=== PATIENT | female | born 1970 | race Caucasian/White ===

== ENCOUNTER 2017-09-08 13:43 | Observation (INO) | payer SELFPAY ==
--- NOTE | 2017-09-08 16:20 | C.PDOC ---
History Of Present Illness 47 y/o female presents to ED with c/o chest pain on and off since few days. Patient describes left sided heaviness posteriorly. Denies headache, shortness of breath, nausea, vomiting, or other associated symptoms. Time Seen by Provider: 09/08/17 16:11 Chief Complaint (Nursing): Chest Pain History Per: Patient History/Exam Limitations: no limitations Onset/Duration Of Symptoms: Days Current Symptoms Are (Timing): Still Present Associated Symptoms: denies: Nausea, Dyspnea, Diaphoresis Exacerbating Factors: None Recent travel outside of the [place]: No Past Medical History Reviewed: Historical Data, Nursing Documentation, Vital Signs Vital Signs: Last Vital Signs Temp 98.8 F 09/08/17 18:56 Pulse 75 09/08/17 18:56 Resp 16 09/08/17 18:56 BP 131/75 09/08/17 18:56 Pulse Ox 100 09/08/17 19:57 - Medical History PMH: No Chronic Diseases Family History: States: Unknown Family Hx - Social History Hx Alcohol Use: No Hx Substance Use: No - Immunization History Hx Tetanus Toxoid Vaccination: No Hx Influenza Vaccination: Yes Hx Pneumococcal Vaccination: No Review Of Systems Except As Marked, All Systems Reviewed And Found Negative. Constitutional: Negative for: Fever, Chills Cardiovascular: Positive for: Chest Pain. Negative for: Palpitations Respiratory: Negative for: Cough, Shortness of Breath, Wheezing Gastrointestinal: Negative for: Nausea, Vomiting, Abdominal Pain Skin: Negative for: Rash Neurological: Negative for: Dizziness Physical Exam - Physical Exam Appears: Non-toxic, No Acute Distress Skin: Normal Color, Warm, Dry, No Diaphoretic Head: Atraumatic, Normacephalic Oral Mucosa: Moist Chest: Symmetrical Cardiovascular: Rhythm Regular Respiratory: Normal Breath Sounds, No Rales, No Rhonchi, No Wheezing Gastrointestinal/Abdominal: Normal Exam, Soft, No Tenderness Back: Normal Inspection Extremity: Normal ROM, Capillary Refill (< 2 sec.) Neurological/Psych: Oriented x3, Normal Speech, Normal Cognition ED Course And Treatment - Laboratory Results Result Diagrams: 09/08/17 16:55 09/08/17 16:55 ECG: Interpreted By Me ECG Rhythm: Sinus Rhythm Interpretation Of ECG: nonspecific ST/T wave chages Rate From EC (bpm) O2 Sat by Pulse Oximetry: 100 (RA) Pulse Ox Interpretation: Normal Medical Decision Making Medical Decision Making: cp r/o acs, dissesection- pt with t wave changes anteriorly. - labs imaging pending 800: pt reassesed: will obs as there are ekg changes anteriorly. accepted by dr schuster Disposition - Disposition Disposition: HOSPITALIZED Disposition Time: 19:57 Condition: STABLE - Clinical Impression Clinical Impression: Chest pain - Scribe Statement The provider has reviewed the documentation as recorded by the Scribe SM All medical record entries made by the Scribe were at my direction and personally dictated by me. I have reviewed the chart and agree that the record accurately reflects my personal performance of the history, physical exam, medical decision making, and the department course for this patient. I have also personally directed, reviewed, and agree with the discharge instructions and disposition. Decision To Admit - Pt Status Changed To: Hospital Disposition Of: Observation - . Bed Request Type: Telemetry Admitting Physician: Jay Schuster Patient Diagnosis: Chest pain
--- NOTE | 2017-09-08 16:47 | RAD ---
PROCEDURE: CHEST RADIOGRAPH, 1 VIEW HISTORY: chest pain COMPARISON: None available. FINDINGS: LUNGS: Clear. PLEURA: No pneumothorax or pleural fluid seen. CARDIOVASCULAR: Normal. OSSEOUS STRUCTURES: No significant abnormalities. VISUALIZED UPPER ABDOMEN: Normal. OTHER FINDINGS: None. IMPRESSION: No active disease.
[2017-09-08 17:04] LABS: BASO # 0.1 K/uL (0.0-0.2); BASO % 0.8 % (0.0-2.0); EOS # 0.2 K/uL (0.0-0.7); EOS % 2.2 % (0.0-4.0); HEMATOCRIT 35.8 % (34.0-47.0); LYMPH % 39.9 % (20.0-40.0); MEAN CELL VOLUME 85.2 fL (81.0-99.0); MEAN CORPUSCULAR HEMOGLOBIN 27.6 pg (27.0-31.0); MEAN CORPUSCULAR HGB CONC 32.4 g/dL (33.0-37.0); MEAN PLATELET VOLUME 9.2 fL (7.2-11.7); MONO # 0.6 K/uL (0.0-0.8); MONO % 7.6 % (0.0-10.0); RED CELL DISTRIBUTION WIDTH 14.1 % (11.5-14.5); WHITE BLOOD COUNT 7.5 K/uL (4.8-10.8)
[2017-09-08 17:10] LABS: RBC URINE 12 /hpf (0-3); URINE BACTERIA RARE (<OCC); URINE BILIRUBIN NEGATIVE (NEGATIVE); URINE COLOR Yellow (YELLOW); URINE GLUCOSE (UA) NORMAL (Normal); URINE KETONE TRACE mg/dL (NEGATIVE); URINE PROTEIN NEGATIVE (NEGATIVE); URINE UROBILINOGEN NORMAL mg/dL (0.2-1.0); WBC URINE 1 /hpf (0-5)
[2017-09-08 17:11] LABS: URINE BLOOD 2+ (NEGATIVE); URINE LEUKOCYTE ESTERASE NEGATIVE Leu/uL (Negative)
[2017-09-08 17:12] LABS: INR 0.9
[2017-09-08 17:13] LABS: ALB/GLOB RATIO 1.5 (1.0-2.1); ALKALINE PHOSPHATASE 51 U/L (38-126); ALT/SGPT 43 U/L (9-52); AST/SGOT 28 U/L (14-36); BILIRUBIN,TOTAL 0.6 mg/dL (0.2-1.3); BLOOD UREA NITROGEN 9 mg/dL (7-17); CARBON DIOXIDE 24 mmol/L (22-30); CHLORIDE 101 mmol/L (98-107); GFR AFRICAN-AMERICAN > 60; GLUCOSE,RANDOM 86 mg/dL (65-105); POTASSIUM 3.6 mmol/L (3.6-5.2); SODIUM 137 mmol/L (132-148); TOTAL PROTEIN 7.1 g/dL (6.3-8.3)
[2017-09-08] MEDS ORDERED: Iohexol 300 100 ML IJ ONE (18:19)
--- NOTE | 2017-09-08 19:50 | CT ---
EXAM: CT Chest Without and With Intravenous Contrast CLINICAL HISTORY: 47 years old, female; Pain; Abdominal pain; Flank; Upper; Chest pressure; Additional info: Cp radiating to back TECHNIQUE: Axial computed tomography images of the chest without and with intravenous contrast. All CT scans at this facility use one or more dose reduction techniques, viz.: automated exposure control; ma/kV adjustment per patient size (including targeted exams where dose is matched to indication; i.e. head); or iterative reconstruction technique. Coronal and sagittal reformatted images were created and reviewed. CONTRAST: 100 mL of OMNIPAQUE 300 administered intravenously. COMPARISON: There are no prior studies for comparison. FINDINGS: Lungs and pleural spaces: Trachea and main bronchi are patent.There is no pneumothorax. Lungs are clear. There is no focal consolidation. There are no effusions. Heart and Vasculature: Heart size is normal. There is no pericardial effusion. Pulmonary vessels are unremarkable.There is no aneurysm or dissection. There is perfusion of the 3 arch vessels. Mediastinum: The esophagus is unremarkable. There is a small amount of radiopaque material and air in the distal esophagus. There is a small hiatal hernia. There are no pathologically enlarged mediastinal or hilar nodes. Thyroid: Thyroid is unremarkable Bones/joints: There are degenerative changes in the osseus structures. Soft tissues: unremarkable Upper abdomen: Refer to following report for abdominal findings IMPRESSION: No aortic aneurysm or dissection, no acute disease in the chest EXAM: CT Abdomen and Pelvis Without and With Intravenous Contrast EXAM DATE/TIME: 09/08/2017 5:13 PM CLINICAL HISTORY: 47 years old, female; Pain; Abdominal pain; Flank; Upper; Chest pressure; Additional info: Cp radiating to back TECHNIQUE: Axial computed tomography images of the abdomen and pelvis without and with intravenous contrast. All CT scans at this facility use one or more dose reduction techniques, viz.: automated exposure control; ma/kV adjustment per patient size (including targeted exams where dose is matched to indication; i.e. head); or iterative reconstruction technique. Coronal and sagittal reformatted images were created and reviewed. CONTRAST: 100 mL of OMNIPAQUE 300 administered intravenously. COMPARISON: There are no prior studies for comparison. FINDINGS: Lower thorax: Refer to prior report for chest findings ABDOMEN: Liver: unremarkable Gallbladder and bile ducts: unremarkable Pancreas: unremarkable Spleen: unremarkable Adrenals: unremarkable Kidneys and ureters: unremarkable Stomach and bowel: Stomach is partially distended. Rotation is normal. There is no obstruction. Ileocecal region is unremarkable. Appendix and terminal ileum are unremarkable. Colon is incompletely distended which limits evaluation. Appendix: See stomach and bowel PELVIS: Bladder: Urinary bladder is partially distended. Reproductive: Uterus and adnexal structures are unremarkable. ABDOMEN and PELVIS: Intraperitoneal space: There is no significant fluid.There is no free air. Bones/joints: There are degenerative changes in the spine greatest at L5-S1. Soft tissues: unremarkable Vasculature: Abdominal aorta is normal in course and caliber. There is perfusion of all major abdominal aortic branches. There is perfusion of both iliacs. Lymph nodes: There is no pathologic adenopathy. IMPRESSION: No aneurysm or dissection; no acute solid visceral or bowel abnormality
[2017-09-09 00:04] VITALS: RESP 20
--- NOTE | 2017-09-09 03:11 | CP.PCM.HP ---
<Kirti Masters - Last Filed: 09/09/17 03:08> History of Present Illness - History of Present Illness History of Present Illness: CC: Chest Pain HPI: 47 year old female presented to ED with chest pain that has been on present for the past six days. Patient describes the pain as constant and heavy , and at times sharp. The sharp pain began this afternoon. The pain radiates to her left shoulder, upper back and neck. Nothing makes the pain feel better. She rates it as a 4/10, with it being an 8/10 at its worst. Patient also complains of fatigue, shivering, and diarrhea. Patient denies fever, chills, nausea, vomiting, constipation, abdominal pain, dysuria, leg pain, SOB. PMH: Hypothryoidism PSH: 18 years ago Family History: Father had AR; Mother had 3 stents in her late 50s, HTN, diabetes, and in her 80s; brothers have HTN, diabetes, one brother has pacemaker Medications: Denies Allergies: NKDA Social: Denies tobacco, drug, alcohol use Present on Admission - Present on Admission Any Indicators Present on Admission: No History of DVT/PE: No History of Uncontrolled Diabetes: No Urinary Catheter: No Decubitus Ulcer Present: No Review of Systems - Constitutional Constitutional: Chills, Fatigue - EENT Eyes: absent: Blurred Vision - Cardiovascular Cardiovascular: Chest Pain. absent: Dyspnea, Leg Edema, Palpitations, Pedal Edema - Respiratory Respiratory: absent: Cough, Wheezing, Stridor - Gastrointestinal Gastrointestinal: absent: Abdominal Pain, Constipation, Diarrhea, Nausea, Vomiting - Genitourinary Genitourinary: absent: Difficulty Urinating - Musculoskeletal Musculoskeletal: absent: Numbness, Tingling - Integumentary Integumentary: absent: Rash - Neurological Neurological: absent: Dizziness - Hematologic/Lymphatic Hematologic: absent: Easy Bleeding, Easy Bruising Past Patient History - Past Medical History & Family History Past Medical History?: No - Past Social History Smoking Status: Never Smoked - MUSCULOSKELETAL/RHEUMATOLOGICAL Hx Falls: No - PSYCHIATRIC Hx Substance Use: No - SURGICAL HISTORY Hx Surgeries: Yes Hx Section: Yes (X1) - ANESTHESIA Hx Anesthesia: Yes Hx Anesthesia Reactions: No Hx Malignant Hyperthermia: No Meds Allergies/Adverse Reactions: Allergies Allergy/AdvReac Type Severity Reaction Status Date / Time No Known Allergies Allergy Verified 09/08/17 14:19 Physical Exam - Constitutional Appears: Non-toxic, No Acute Distress - Head Exam Head Exam: ATRAUMATIC, NORMAL INSPECTION, NORMOCEPHALIC - Eye Exam Eye Exam: EOMI, Normal appearance - ENT Exam ENT Exam: Mucous Membranes Moist - Respiratory Exam Respiratory Exam: Clear to Auscultation Bilateral, NORMAL BREATHING PATTERN. absent: Rales, Rhonchi, Wheezes, Respiratory Distress, Stridor - Cardiovascular Exam Cardiovascular Exam: REGULAR RHYTHM, RRR, +S1, +S2 - GI/Abdominal Exam GI & Abdominal Exam: Normal Bowel Sounds, Soft. absent: Tenderness - Extremities Exam Extremities exam: Positive for: normal inspection. Negative for: pedal edema, tenderness - Neurological Exam Neurological exam: Alert, Oriented x3 - Skin Skin Exam: Intact, Normal Color, Warm Results - Vital Signs Recent Vital Signs: Last Vital Signs Temp 97.6 F 09/09/17 00:15 Pulse 72 09/09/17 01:50 Resp 20 09/09/17 00:15 BP 113/61 09/09/17 00:15 Pulse Ox 96 09/09/17 00:15 - Labs Result Diagrams: 09/08/17 16:55 09/08/17 16:55 Labs: Laboratory Results - last 24 hr 09/08/17 09/08/17 09/08/17 16:55 16:55 16:55 WBC 7.5 RBC 4.20 Hgb 11.6 Hct 35.8 MCV 85.2 MCH 27.6 MCHC 32.4 L RDW 14.1 Plt Count 231 MPV 9.2 Neut % (Auto) 49.5 L Lymph % (Auto) 39.9 Ellis % (Auto) 7.6 Eos % (Auto) 2.2 Baso % (Auto) 0.8 Neut # 3.7 Lymph # 3.0 Ellis # 0.6 Eos # 0.2 Baso # 0.1 PT 10.5 INR 0.9 APTT 31 Sodium 137 Potassium 3.6 Chloride 101 Carbon Dioxide 24 Anion Gap 15 BUN 9 Creatinine 0.6 L Est GFR ( Amer) > 60 Est GFR (Non-Af Amer) > 60 Random Glucose 86 Calcium 9.0 Total Bilirubin 0.6 AST 28 ALT 43 Alkaline Phosphatase 51 Troponin I < 0.0120 Total Protein 7.1 Albumin 4.2 Globulin 2.8 Albumin/Globulin Ratio 1.5 Urine Color Urine Clarity Urine pH Ur Specific Marshall Urine Protein Urine Glucose (UA) Urine Ketones Urine Blood Urine Nitrate Urine Bilirubin Urine Urobilinogen Ur Leukocyte Esterase Urine WBC (Auto) Urine RBC (Auto) Ur Squamous Epith Cells Urine Bacteria Urine HCG, Qual 09/08/17 09/08/17 17:01 18:08 WBC RBC Hgb Hct MCV MCH MCHC RDW Plt Count MPV Neut % (Auto) Lymph % (Auto) Ellis % (Auto) Eos % (Auto) Baso % (Auto) Neut # Lymph # Ellis # Eos # Baso # PT INR APTT Sodium Potassium Chloride Carbon Dioxide Anion Gap BUN Creatinine Est GFR ( Amer) Est GFR (Non-Af Amer) Random Glucose Calcium Total Bilirubin AST ALT Alkaline Phosphatase Troponin I Total Protein Albumin Globulin Albumin/Globulin Ratio Urine Color Yellow Urine Clarity Clear Urine pH 5.0 Ur Specific Marshall 1.018 Urine Protein Negative Urine Glucose (UA) Normal Urine Ketones Trace Urine Blood 2+ H Urine Nitrate Negative Urine Bilirubin Negative Urine Urobilinogen Normal Ur Leukocyte Esterase Negative Urine WBC (Auto) 1 Urine RBC (Auto) 12 H Ur Squamous Epith Cells 5 Urine Bacteria Rare Urine HCG, Qual Negative Assessment & Plan - Assessment and Plan (Free Text) Assessment: Chest pain 2/2 cervical radiculopathy vs ACS F/u Troponins First Troponin: negative Flexeril 10mg po TID PRN ASA 325mg po given in ED apply cervical collar Hypothyroidism takes no medication due to interrupting menstrual cycle f/u TSH, T4 Prophylaxis DVT: SCDs <Jay Dee P - Last Filed: 09/09/17 06:49> Results - Vital Signs Recent Vital Signs: Last Vital Signs Temp 97.6 F 09/09/17 00:15 Pulse 72 09/09/17 01:50 Resp 20 09/09/17 00:15 BP 113/61 09/09/17 00:15 Pulse Ox 96 09/09/17 00:15 - Labs Result Diagrams: 09/08/17 16:55 09/08/17 16:55 Labs: Laboratory Results - last 24 hr 09/08/17 09/08/17 09/08/17 16:55 16:55 16:55 WBC 7.5 RBC 4.20 Hgb 11.6 Hct 35.8 MCV 85.2 MCH 27.6 MCHC 32.4 L RDW 14.1 Plt Count 231 MPV 9.2 Neut % (Auto) 49.5 L Lymph % (Auto) 39.9 Ellis % (Auto) 7.6 Eos % (Auto) 2.2 Baso % (Auto) 0.8 Neut # 3.7 Lymph # 3.0 Ellis # 0.6 Eos # 0.2 Baso # 0.1 PT 10.5 INR 0.9 APTT 31 Sodium 137 Potassium 3.6 Chloride 101 Carbon Dioxide 24 Anion Gap 15 BUN 9 Creatinine 0.6 L Est GFR ( Amer) > 60 Est GFR (Non-Af Amer) > 60 Random Glucose 86 Calcium 9.0 Total Bilirubin 0.6 AST 28 ALT 43 Alkaline Phosphatase 51 Troponin I < 0.0120 Total Protein 7.1 Albumin 4.2 Globulin 2.8 Albumin/Globulin Ratio 1.5 Urine Color Urine Clarity Urine pH Ur Specific Marshall Urine Protein Urine Glucose (UA) Urine Ketones Urine Blood Urine Nitrate Urine Bilirubin Urine Urobilinogen Ur Leukocyte Esterase Urine WBC (Auto) Urine RBC (Auto) Ur Squamous Epith Cells Urine Bacteria Urine HCG, Qual 09/08/17 09/08/17 17:01 18:08 WBC RBC Hgb Hct MCV MCH MCHC RDW Plt Count MPV Neut % (Auto) Lymph % (Auto) Ellis % (Auto) Eos % (Auto) Baso % (Auto) Neut # Lymph # Ellis # Eos # Baso # PT INR APTT Sodium Potassium Chloride Carbon Dioxide Anion Gap BUN Creatinine Est GFR ( Amer) Est GFR (Non-Af Amer) Random Glucose Calcium Total Bilirubin AST ALT Alkaline Phosphatase Troponin I Total Protein Albumin Globulin Albumin/Globulin Ratio Urine Color Yellow Urine Clarity Clear Urine pH 5.0 Ur Specific Marshall 1.018 Urine Protein Negative Urine Glucose (UA) Normal Urine Ketones Trace Urine Blood 2+ H Urine Nitrate Negative Urine Bilirubin Negative Urine Urobilinogen Normal Ur Leukocyte Esterase Negative Urine WBC (Auto) 1 Urine RBC (Auto) 12 H Ur Squamous Epith Cells 5 Urine Bacteria Rare Urine HCG, Qual Negative Attending/Attestation - Attestation I have personally seen and examined this patient.: Yes I have fully participated in the care of the patient.: Yes I have reviewed all pertinent clinical information: Yes Notes (Text): Assessment/Plan Atypical chest pain with clinical signs of left cervical radiculopathy with left shoulder, upper chest muscle spasm, negative initial trop, will do serial trop, cervical collar, toradol, muscle relaxant Strong family history of CAD in mom, heart history in brother, with DM and htn running those 3 family members but not the patient, early natural of father. H/o hypothyroidism was on meds, stopped 15 ys back, will check tsh.
[2017-09-09 07:55] VITALS: BP 105/68; PULSE 65; TEMP 98; O2SAT 98
[2017-09-09 08:22] LABS: CHOLESTEROL 134 mg/dL (0-199)
[2017-09-09 08:59] LABS: THYROID STIMULATING HORMONE 1.97 mIU/L (0.46-4.68)
--- NOTE | 2017-09-09 11:00 | CP.PCM.DIS ---
<So Dove - Last Filed: 09/09/17 18:25> Provider - Provider Date of Admission: 09/08/17 19:54 Attending physician: Av Stone DO Time Spent in preparation of Discharge (in minutes): 40 Hospital Course - Lab Results Lab Results: Most Recent Lab Values WBC 7.5 K/uL (4.8-10.8) 09/08/17 16:55 RBC 4.20 Mil/uL (3.80-5.20) 09/08/17 16:55 Hgb 11.6 g/dL (11.0-16.0) 09/08/17 16:55 Hct 35.8 % (34.0-47.0) 09/08/17 16:55 MCV 85.2 fL (81.0-99.0) 09/08/17 16:55 MCH 27.6 pg (27.0-31.0) 09/08/17 16:55 MCHC 32.4 g/dL (33.0-37.0) L 09/08/17 16:55 RDW 14.1 % (11.5-14.5) 09/08/17 16:55 Plt Count 231 K/uL (130-400) 09/08/17 16:55 MPV 9.2 fL (7.2-11.7) 09/08/17 16:55 Neut % (Auto) 49.5 % (50.0-75.0) L 09/08/17 16:55 Lymph % (Auto) 39.9 % (20.0-40.0) 09/08/17 16:55 [place] % (Auto) 7.6 % (0.0-10.0) 09/08/17 16:55 Eos % (Auto) 2.2 % (0.0-4.0) 09/08/17 16:55 Baso % (Auto) 0.8 % (0.0-2.0) 09/08/17 16:55 Neut # 3.7 K/uL (1.8-7.0) 09/08/17 16:55 Lymph # 3.0 K/uL (1.0-4.3) 09/08/17 16:55 Henderson # 0.6 K/uL (0.0-0.8) 09/08/17 16:55 Eos # 0.2 K/uL (0.0-0.7) 09/08/17 16:55 Baso # 0.1 K/uL (0.0-0.2) 09/08/17 16:55 PT 10.5 SECONDS (9.7-12.2) 09/08/17 16:55 INR 0.9 09/08/17 16:55 APTT 31 SECONDS (21-34) 09/08/17 16:55 Sodium 137 mmol/L (132-148) 09/08/17 16:55 Potassium 3.6 mmol/L (3.6-5.2) 09/08/17 16:55 Chloride 101 mmol/L (98-107) 09/08/17 16:55 Carbon Dioxide 24 mmol/L (22-30) 09/08/17 16:55 Anion Gap 15 (10-20) 09/08/17 16:55 BUN 9 mg/dL (7-17) 09/08/17 16:55 Creatinine 0.6 mg/dL (0.7-1.2) L 09/08/17 16:55 Est GFR ( Amer) > 60 09/08/17 16:55 Est GFR (Non-Af Amer) > 60 09/08/17 16:55 Random Glucose 86 mg/dL (65-105) 09/08/17 16:55 Hemoglobin A1c 5.8 % (4.2-6.5) 09/09/17 08:03 Calcium 9.0 mg/dl (8.6-10.4) 09/08/17 16:55 Total Bilirubin 0.6 mg/dL (0.2-1.3) 09/08/17 16:55 AST 28 U/L (14-36) 09/08/17 16:55 ALT 43 U/L (9-52) 09/08/17 16:55 Alkaline Phosphatase 51 U/L (38-126) 09/08/17 16:55 Troponin I < 0.0120 ng/mL (0.00-0.120) 09/09/17 08:03 Total Protein 7.1 g/dL (6.3-8.3) 09/08/17 16:55 Albumin 4.2 g/dL (3.5-5.0) 09/08/17 16:55 Globulin 2.8 gm/dL (2.2-3.9) 09/08/17 16:55 Albumin/Globulin Ratio 1.5 (1.0-2.1) 09/08/17 16:55 Triglycerides 75 mg/dL (0-149) 09/09/17 08:03 Cholesterol 134 mg/dL (0-199) 09/09/17 08:03 LDL Cholesterol Direct 90 mg/dL (0-129) 09/09/17 08:03 HDL Cholesterol 39 mg/dL (30-70) 09/09/17 08:03 Free T4 0.92 ng/dL (0.78-2.19) 09/09/17 08:03 TSH 3rd Generation 1.97 mIU/L (0.46-4.68) 09/09/17 08:03 Urine Color Yellow (YELLOW) 09/08/17 17:01 Urine Clarity Clear (Clear) 09/08/17 17:01 Urine pH 5.0 (5.0-8.0) 09/08/17 17:01 Ur Specific [place] 1.018 (1.003-1.030) 09/08/17 17:01 Urine Protein Negative mg/dL (NEGATIVE) 09/08/17 17:01 Urine Glucose (UA) Normal mg/dL (Normal) 09/08/17 17:01 Urine Ketones Trace mg/dL (NEGATIVE) 09/08/17 17:01 Urine Blood 2+ (NEGATIVE) H 09/08/17 17:01 Urine Nitrate Negative (NEGATIVE) 09/08/17 17:01 Urine Bilirubin Negative (NEGATIVE) 09/08/17 17:01 Urine Urobilinogen Normal mg/dL (0.2-1.0) 09/08/17 17:01 Ur Leukocyte Esterase Negative Zafar/uL (Negative) 09/08/17 17:01 Urine WBC (Auto) 1 /hpf (0-5) 09/08/17 17:01 Urine RBC (Auto) 12 /hpf (0-3) H 09/08/17 17:01 Ur Squamous Epith Cells 5 /hpf (0-5) 09/08/17 17:01 Urine Bacteria Rare (<OCC) 09/08/17 17:01 Urine HCG, Qual Negative (NEGATIVE) 09/08/17 18:08 - Hospital Course Hospital Course: HPI: 47 year old female presented to ED with chest pain that has been on present for the past six days. Patient describes the pain as constant and heavy , and at times sharp. The sharp pain began this afternoon. The pain radiates to her left shoulder, upper back and neck. Nothing makes the pain feel better. She rates it as a 4/10, with it being an 8/10 at its worst. Patient also complains of fatigue, shivering, and diarrhea. Patient denies fever, chills, nausea, vomiting, constipation, abdominal pain, dysuria, leg pain, SOB. PMH: Hypothryoidism PSH: 18 years ago Family History: Father had NM; Mother had 3 stents in her late 50s, HTN, diabetes, and in her 80s; brothers have HTN, diabetes, one brother has pacemaker Medications: Denies Allergies: NKDA Social: Denies tobacco, drug, alcohol use Hospital Course: Upon admission, the following imaging and diagnostic exams were conducted on : EKG: Normal Sinus Rhythm. CT Dissection: No aneurysm or dissection; no acute solid visceral or bowel abnormality. Chest XR: No active disease. Troponins were negative x3. TSH/T4 levels: within normal limits. No further cardiac work up is needed at this time. Over the course of her hospital stay, patient reported decrease in chest pain and neck pain. Recently she has been having a lot of stress at work and at home. Patient expresses she is feeling better and ready to go home. Patient is stable for discharge and will follow up in the clinic. This is a brief summary of the patients hospital course. Please review EMR for full record. Patient stable for discharge per Dr. Stone. Patient to start new medication: Cyclobenzaprine 10mg one tablet twice a day as needed for neck pain. Patient to follow up with [facility] in 1-2 weeks: Please call to schedule an appointment: [phone] Return to the Emergency room if symptoms return or worsen. Discharge Exam - Head Exam Head Exam: ATRAUMATIC, NORMAL INSPECTION, NORMOCEPHALIC - Eye Exam Eye Exam: EOMI, Normal appearance - ENT Exam ENT Exam: Mucous Membranes Moist - Respiratory Exam Respiratory Exam: Clear to PA & Lateral, NORMAL BREATHING PATTERN - Cardiovascular Exam Cardiovascular Exam: REGULAR RHYTHM, RRR, +S1, +S2 - GI/Abdominal Exam GI & Abdominal Exam: Normal Bowel Sounds, Soft. absent: Tenderness - Extremities Exam Extremities exam: normal inspection - Neurological Exam Neurological exam: Alert, Oriented x3 - Psychiatric Exam Psychiatric exam: Normal Affect, Normal Mood - Skin Skin Exam: Normal Color, Warm Discharge Plan - Discharge Medications Prescriptions: Cyclobenzaprine [Flexeril] 10 mg PO BID PRN #30 tab PRN Reason: Pain, Moderate (4-7) - Follow Up Plan Condition: STABLE Disposition: HOME/ ROUTINE Instructions: Cyclobenzaprine (By mouth), Chest Pain (DC), Heart Healthy Diet ( DC) Additional Instructions: Follow up [facility] Tel. [phone] Come to [facility] if chest persists or worsened. Referrals: Clinic,Med Surg [Non-Staff] - <Av Stone - Last Filed: 09/09/17 18:45> Provider - Provider Date of Admission: 09/08/17 19:54 Attending physician: Av Stone [facility] Course - Lab Results Lab Results: Most Recent Lab Values WBC 7.5 K/uL (4.8-10.8) 09/08/17 16:55 RBC 4.20 Mil/uL (3.80-5.20) 09/08/17 16:55 Hgb 11.6 g/dL (11.0-16.0) 09/08/17 16:55 Hct 35.8 % (34.0-47.0) 09/08/17 16:55 MCV 85.2 fL (81.0-99.0) 09/08/17 16:55 MCH 27.6 pg (27.0-31.0) 09/08/17 16:55 MCHC 32.4 g/dL (33.0-37.0) L 09/08/17 16:55 RDW 14.1 % (11.5-14.5) 09/08/17 16:55 Plt Count 231 K/uL (130-400) 09/08/17 16:55 MPV 9.2 fL (7.2-11.7) 09/08/17 16:55 Neut % (Auto) 49.5 % (50.0-75.0) L 09/08/17 16:55 Lymph % (Auto) 39.9 % (20.0-40.0) 09/08/17 16:55 [place] % (Auto) 7.6 % (0.0-10.0) 09/08/17 16:55 Eos % (Auto) 2.2 % (0.0-4.0) 09/08/17 16:55 Baso % (Auto) 0.8 % (0.0-2.0) 09/08/17 16:55 Neut # 3.7 K/uL (1.8-7.0) 09/08/17 16:55 Lymph # 3.0 K/uL (1.0-4.3) 09/08/17 16:55 Henderson # 0.6 K/uL (0.0-0.8) 09/08/17 16:55 Eos # 0.2 K/uL (0.0-0.7) 09/08/17 16:55 Baso # 0.1 K/uL (0.0-0.2) 09/08/17 16:55 PT 10.5 SECONDS (9.7-12.2) 09/08/17 16:55 INR 0.9 09/08/17 16:55 APTT 31 SECONDS (21-34) 09/08/17 16:55 Sodium 137 mmol/L (132-148) 09/08/17 16:55 Potassium 3.6 mmol/L (3.6-5.2) 09/08/17 16:55 Chloride 101 mmol/L (98-107) 09/08/17 16:55 Carbon Dioxide 24 mmol/L (22-30) 09/08/17 16:55 Anion Gap 15 (10-20) 09/08/17 16:55 BUN 9 mg/dL (7-17) 09/08/17 16:55 Creatinine 0.6 mg/dL (0.7-1.2) L 09/08/17 16:55 Est GFR ( Amer) > 60 09/08/17 16:55 Est GFR (Non-Af Amer) > 60 09/08/17 16:55 Random Glucose 86 mg/dL (65-105) 09/08/17 16:55 Hemoglobin A1c 5.8 % (4.2-6.5) 09/09/17 08:03 Calcium 9.0 mg/dl (8.6-10.4) 09/08/17 16:55 Total Bilirubin 0.6 mg/dL (0.2-1.3) 09/08/17 16:55 AST 28 U/L (14-36) 09/08/17 16:55 ALT 43 U/L (9-52) 09/08/17 16:55 Alkaline Phosphatase 51 U/L (38-126) 09/08/17 16:55 Total Creatine Kinase 80 U/L (30-135) 09/09/17 12:23 CK-MB (Mass) 0.59 ng/mL (0.0-3.38) 09/09/17 12:23 Troponin I < 0.0120 ng/mL (0.00-0.120) 09/09/17 12:23 Total Protein 7.1 g/dL (6.3-8.3) 09/08/17 16:55 Albumin 4.2 g/dL (3.5-5.0) 09/08/17 16:55 Globulin 2.8 gm/dL (2.2-3.9) 09/08/17 16:55 Albumin/Globulin Ratio 1.5 (1.0-2.1) 09/08/17 16:55 Triglycerides 75 mg/dL (0-149) 09/09/17 08:03 Cholesterol 134 mg/dL (0-199) 09/09/17 08:03 LDL Cholesterol Direct 90 mg/dL (0-129) 09/09/17 08:03 HDL Cholesterol 39 mg/dL (30-70) 09/09/17 08:03 Free T4 0.92 ng/dL (0.78-2.19) 09/09/17 08:03 TSH 3rd Generation 1.97 mIU/L (0.46-4.68) 09/09/17 08:03 Urine Color Yellow (YELLOW) 09/08/17 17:01 Urine Clarity Clear (Clear) 09/08/17 17:01 Urine pH 5.0 (5.0-8.0) 09/08/17 17:01 Ur Specific [place] 1.018 (1.003-1.030) 09/08/17 17:01 Urine Protein Negative mg/dL (NEGATIVE) 09/08/17 17:01 Urine Glucose (UA) Normal mg/dL (Normal) 09/08/17 17:01 Urine Ketones Trace mg/dL (NEGATIVE) 09/08/17 17:01 Urine Blood 2+ (NEGATIVE) H 09/08/17 17:01 Urine Nitrate Negative (NEGATIVE) 09/08/17 17:01 Urine Bilirubin Negative (NEGATIVE) 09/08/17 17: Urine Urobilinogen Normal mg/dL (0.2-1.0) 09/08/17 17:01 Ur Leukocyte Esterase Negative Zafar/uL (Negative) 09/08/17 17:01 Urine WBC (Auto) 1 /hpf (0-5) 09/08/17 17:01 Urine RBC (Auto) 12 /hpf (0-3) H 09/08/17 17:01 Ur Squamous Epith Cells 5 /hpf (0-5) 09/08/17 17:01 Urine Bacteria Rare (<OCC) 09/08/17 17:01 Urine HCG, Qual Negative (NEGATIVE) 09/08/17 18:08 Attending/Attestation - Attestation I have personally seen and examined this patient.: Yes I have fully participated in the care of the patient.: Yes I have reviewed all pertinent clinical information, including history, physical exam and plan: Yes Notes (Text): 09/09/17 18:45 Medical attending: Patient was seen and examined by me, agrees the above note by certified medical coding specialist. The patient felt very well by the time I rounded with the residents in the morning. The pain that she had overnight had resolved. She had 3 cardiac enzymes that were negative, I also reviewed the EKG which was stable as well he was normal sinus rhythm. The most concerning thing about this patient and I explained this to her was that she told us that she has a history of hypothyroidism and that she had not been taking medication for at least 10 years. And so we did check a TSH and he was within normal limits. So I explained to her that she's can do need follow- up particularly in the [facility] clinic in the future for additional TSH follow. Other than this we will not be starting her on any Synthroid or levothyroxine due to her numbers being normal. Thank you very much, Av Stone
== END 2017-09-09 13:15 | disposition home or self-care (01) ==
LOC: C.ER 13:43 → C.9E 19:54 → C.6T 22:46
PROVIDERS: ADMIT Hospitalist; ATTEND Hospitalist
DX: R07.9 Chest pain, unspecified (principal); E03.9 Hypothyroidism, unspecified; Z83.3 Family history of diabetes mellitus; Z82.49 Family history of ischemic heart disease and other diseases of the circulatory system
CPT/HCPCS: 36415; 71010; 71275; 74175; 80053; 80061; 81001; 83036; 84439; 84443; 84484; 84703; 85025; 85610; 85730; G0378; Q9967